=== PATIENT | female | born 1935 | race Caucasian/White ===

== ENCOUNTER 2022-07-11 14:04 | Emergency (ER) | payer MEDICARE ==
[~2022-07-11] VITALS: Ht 162.6 cm; Wt 84.8 kg
[~2022-07-11 14:04] MED LIST: ALPHAGAN P5 ML OS; ASPIRIN81 MG PO; COLESTIPOL HCL1 G1 PO; COSOPT PF EYE1 EACH OS; LOPERAMIDE2 MG PO; MELOXICAM7.5 MG PO; MOBIC7.5 MG PO; OMEPRAZOLE40 MG PO; PANTOPRAZOLE SO40 MG PO; PREDNISOLONE; PREDNISOLONE AC OS; RANITIDINE HCL300 MG PO; TIMOLOL; TRAVATAN Z5 ML OS; TYLENOL ES PO; Z.0.LIPITOR10 MG PO; Z.0.LISINOPRIL20 MG PO; ZUPLENZ8 MG PO; [UNRECOGNIZED DRUG - CODE] PO; [UNRECOGNIZED DRUG - OTHER]
[2022-07-11] MEDS ORDERED: SODIUM CHLORIDE 0.9% 1000ML 1,000 ML IV SCH (14:30)
[2022-07-11 14:42] LABS: BASOPHILS % 0.7 % (0.0-1.0); EOSINOPHILS # (AUTO) 0.1 (0.0-0.4); EOSINOPHILS % 1.4 % (0.0-6.0); HEMATOCRIT 32.3 % (34.2-44.1); HEMOGLOBIN 10.8 g/dL (12.0-16.0); LYMPHOCYTES # (AUTO) 1.6 (1.0-3.2); LYMPHOCYTES % 26.6 % (18.0-39.1); MEAN CORPUSCULAR HEMOGLOBIN 31.1 pg (28-32); MEAN CORPUSCULAR HGB CONC 33.4 g/dL (31-35); MEAN CORPUSCULAR VOLUME 93.1 fL (81-99); MONOCYTES # (AUTO) 0.7 (0.2-0.8); MONOCYTES % 11.7 % (4.4-11.3); NEUTROPHILS # (AUTO) 3.5 (2.1-6.9); NEUTROPHILS % 59.4 % (38.7-80.0); PLATELET COUNT 225 x10e3/uL (140-360); RED BLOOD COUNT 3.47 x10e6/uL (3.6-5.1); RED CELL DISTRIBUTION WIDTH 12.7 % (11.7-14.4)
[2022-07-11 15:22] LABS: ALBUMIN 4.2 g/dL (3.5-5.0); ALBUMIN/GLOBULIN RATIO 1.1 (0.8-2.0); ANION GAP 14.9 mmol/L (8-16); CALCIUM 9.7 mg/dL (8.4-10.2); CREATININE, SERUM 0.98 mg/dL (0.57-1.11); POTASSIUM 4.9 mmol/L (3.5-5.1)
[2022-07-11] MEDS ORDERED: SODIUM CHLORIDE 0.9% 1000ML 1,000 ML ONE (16:31)
== END 2022-07-11 18:19 | disposition home or self-care (01) ==
LOC: ER 14:13
DX: E87.1 Hypo-osmolality and hyponatremia (principal); I10 Essential (primary) hypertension; E78.5 Hyperlipidemia, unspecified; K21.9 Gastro-esophageal reflux disease without esophagitis; Z85.3 Personal history of malignant neoplasm of breast; R94.31 Abnormal electrocardiogram [ECG] [EKG]
CPT/HCPCS: 36415; 80053; 85025; 93005; 99284; J7030